=== PATIENT | male | born 1965 | race Caucasian/White ===

== ENCOUNTER → 2017-08-27 | Outpatient (CLI) | payer OTHER ==
[~2017-08-27] MED LIST: AUGMENTIN875 MG PO; HYDROCODON-ACE1 EACH; OMEPRAZOLE40 M1 PO; PREDNISONE20 MG PO
== END | disposition home or self-care (01) ==
LOC: CDC 10:46
DX: Z01.810 Encounter for preprocedural cardiovascular examination (principal); K40.20 Bilateral inguinal hernia, without obstruction or gangrene, not specified as recurrent
CPT/HCPCS: 93000

== ENCOUNTER 2017-08-30 10:17 | Day surgery (SDC) | payer OTHER ==
[~2017-08-30] VITALS: Ht 175.3 cm; Wt 90.7 kg
[2017-08-30 11:03] VITALS: BP 134/87
[2017-08-30] MEDS ORDERED: PERCOCET 5/31 TABLET PO (15:09)
[2017-08-30] MEDS ORDERED: COLACE100 MG PO (15:09)
[2017-08-30 16:25] VITALS: BP 161/97
[2017-08-30 17:20] VITALS: BP 162/83
== END 2017-08-30 17:35 | disposition home or self-care (01) ==
LOC: SDC 10:17
DX: K40.91 Unilateral inguinal hernia, without obstruction or gangrene, recurrent (principal); K40.90 Unilateral inguinal hernia, without obstruction or gangrene, not specified as recurrent; L91.8 Other hypertrophic disorders of the skin; D22.5 Melanocytic nevi of trunk; K21.9 Gastro-esophageal reflux disease without esophagitis; Z90.81 Acquired absence of spleen; Z90.5 Acquired absence of kidney; Z87.828 Personal history of other (healed) physical injury and trauma; Z82.49 Family history of ischemic heart disease and other diseases of the circulatory system; Z82.5 Family history of asthma and other chronic lower respiratory diseases; Z80.0 Family history of malignant neoplasm of digestive organs; Z82.0 Family history of epilepsy and other diseases of the nervous system; F17.220 Nicotine dependence, chewing tobacco, uncomplicated
CPT/HCPCS: 88304; 88305; C1727; C1781; J0131; J0690; J1100; J1170; J2250; J2405; J2710; J3010; J7643